=== PATIENT | male | born 1950 | race Hispanic/Latino ===

== ENCOUNTER 2017-07-10 08:45 | Day surgery (SDC) | payer MEDICARE, OTHER ==
[~2017-07-10] VITALS: Ht 182.9 cm; Wt 114.1 kg
[~2017-07-10 08:45] MED LIST: ACET-66 PO; DOCU-132 PO; METO50TA18 PO; OMEP40CA37 PO; RIVA20TA PO; SIMV20TA6 PO; SODIUM CHLORIDE 0.9% 1000ML 1,000 ML IV ONE
[2017-07-10] MEDS ORDERED: SOTA80TA PO (09:43)
[2017-07-10] MEDS ORDERED: ROSU5TAB11 PO (09:43)
[2017-07-10 09:48] VITALS: BP 143/76
[2017-07-10] MEDS ORDERED: PROPOFOL 10 MG/ML 20ML VIAL IV ONE (10:05)
[2017-07-10 10:25] VITALS: BP 110/55
== END 2017-07-10 11:00 | disposition home or self-care (01) ==
LOC: SUH 08:45 → DAH 08:45 → SUH 11:00
PROVIDERS: ATTEND Internal Medicine Gastroenterology
DX: D12.2 Benign neoplasm of ascending colon (principal); K57.30 Diverticulosis of large intestine without perforation or abscess without bleeding; K64.8 Other hemorrhoids; K21.9 Gastro-esophageal reflux disease without esophagitis; I10 Essential (primary) hypertension; E78.4 Other hyperlipidemia; I48.91 Unspecified atrial fibrillation; G47.33 Obstructive sleep apnea (adult) (pediatric); Z88.5 Allergy status to narcotic agent; Z86.73 Personal history of transient ischemic attack (TIA), and cerebral infarction without residual deficits; Z88.8 Allergy status to other drugs, medicaments and biological substances
CPT/HCPCS: 45385; 88305; 93005; A4606; J2704; J7030

== ENCOUNTER → 2021-11-16 | Outpatient (CLI) | payer OTHER ==
[~2021-11-16] MED LIST changes: -ACET-66 PO; +GADOTERATE MEGLUMINE 10 MMOL/20 ML VIAL IV ONE; -METO50TA18 PO; +OMEP40CA21 PO; -OMEP40CA37 PO; -RIVA20TA PO; +ROSU5TAB12 PO; -SIMV20TA6 PO; -SODIUM CHLORIDE 0.9% 1000ML 1,000 ML IV ONE; +SOTA80TA PO
== END | disposition home or self-care (01) ==
LOC: RAH 10:32
PROVIDERS: ATTEND Family Medicine
DX: H49.21 Sixth [abducent] nerve palsy, right eye (principal)
CPT/HCPCS: 70553; A9575